=== PATIENT | female | born 1995 | race Caucasian/White ===

== ENCOUNTER 2025-04-10 16:43 | Outpatient (RCR) | payer BC, SELFPAY ==
[2025-04-10 18:25] VITALS: BP 123/73; PULSE 55
== END 2025-07-09 23:59 | disposition home or self-care (01) ==
LOC: ANHOBOP 16:43
PROVIDERS: PCP Family Medicine; Visit Provider Obstetrics & Gynecology Gynecology
DX: O36.8130 Decreased fetal movements, third trimester, not applicable or unspecified (principal); Z3A.38 38 weeks gestation of pregnancy
CPT/HCPCS: 59025

== ENCOUNTER 2025-04-15 16:41 | Inpatient (IN) | payer BC, SELFPAY ==
[2025-04-15] VITALS (19 sets, daily range): BP systolic 115–138; BP diastolic 49–86; PULSE 56–93; TEMP 36.8–36.9; BMI 37.0
--- OUTSIDE RECORDS SUMMARY | 2025-04-15 16:46 | XMS_ITS ---
Author Organization [facility] Source Produ ction (ClinicalSummary Clone) Address Unknown Care Team Providers Care Skill Training Program Coordinator Name Role Phone Unavailable Primary Care Physician Unavailab le Results * [UNITY] CARRIER SCREEN Performed by: [employer] Value Range Date Sickle Cell Disease/Beta-Thalassemia/Hemo globinopathies carrier screen NEGATIVE 10/17/2024 08:11 pm [facility] Alpha-Thalassemia carrier screen NEGATIVE 10/17/2024 08:11 pm [facility] Cystic Fibrosis carrier screen NEGATIVE 10/17/2024 08:11 pm [place] Spinal Muscular Atrophy carrier screen NEGATIVE 2 SMN1 copies, SNP not present 10/17/2024 08:11 pm [facility] For detailed report, see PDF See PDF 10/17/2024 08:11 pm [place] 10/17/2024 08:1 1 pm [facility] Social History Observation Value Start Date End Date
--- OUTSIDE RECORDS SUMMARY | 2025-04-15 16:46 | XMS_ITS | Encounter Summary ---
Author Organization [facility] Address [facility] [place] [address] Care Team Providers Care Shagger Name Role Phone Irina Tellez DO Primary Care Provider [phone] Encounter Details Date Type Department Care Team (Late st Contact Info) Description 06/09/2021 Synergost Message Enc [facility] Family Medicine - [place] [address], [address] [place] [phone] Irina Tellez DO [address] [address] Question Social History Tobacco Use Types Packs/Day Years Used Date Smoking Tobacco: Never Smokeless Tobacco: Never Alcohol Use Standard Drinks/Week Comments Not Currently 0 (1 standard drink = 0.6 oz pur e alcohol) PHQ-2 Answer Date Recorded PHQ-2 Score - If the patient scores above 3, please move on to questions 3-9 0 01/14/2021 Comments No Sex and Gender Information Value Date Recorded Sex Assigned at Female 10/10/2024 3:13 PM CDT Legal Sex Female 4:13 PM CDT Gender Identity Female 10/01/2021 8:29 AM WATER FILTRATION TECHNICIAN Sexual Orientation Straight 10/01/2021 8: 29 AM WATER FILTRATION TECHNICIAN documented as of this encounter Plan of Treatment Not on file documented as of this encounter Visit Diagnoses Not on filedocumented in this encounter Additional Health Concerns Assessment Noted Time PHQ-9 Depression Total Score: 0 06/09/20 21 2:27 PM WATER FILTRATION TECHNICIAN documented as of this encounter Care Teams Shagger Relationship Specialty Start Date End Date Irina Tellez DO [address] [place] [address] PCP - General FAMILY PRACTICE 09/15/19 documented as of this encounter
--- OUTSIDE RECORDS SUMMARY | 2025-04-15 16:46 | XMS_ITS | Encounter Summary ---
Author Organization [facility] Address [facility] [place] [address] Care Team Providers Care Welt Rander Name Role Phone Irina Tellez DO Primary Care Provider Encounter Details Date Type Department Care Team (Late st Contact Info) Description 06/22/2024 Tablefindert Message Enc [facility] Medical [facility] Family Medicine - [place] [address] [place] [phone] Irina Tellez DO [address] [place] [address] Work physical results Social History Tobacco Use Types Packs/Day Years Used Date Smoking Tobacco: Never Passive Smoke Exposure: Never Smokeless Tobacco: Never Comments:Never used Alcohol Use Standard Drinks/Week Comments Yes 2 (1 standard drink = 0.6 oz pur e alcohol) Only socially PHQ-2 Answer Date Recorded Patient Health Questionnaire-2 Score 0 10/11/2023 Comments No Sex and Gender Information Value Date Recorded Sex Assigned at Female 10/10/2024 3:13 PM CDT Legal Sex Female 4:13 PM CDT Gender Identity Female 10/01/2021 8:29 AM NEPHROLOGY NURSE Sexual Orientation Straight 10/01/2021 8: 29 AM NEPHROLOGY NURSE documented as of this encounter Plan of Treatment Not on file documented as of this encounter Visit Diagnoses Not on filedocumented in this encounter Additional Health Concerns Assessment Noted Time PHQ-9 Depression Total Score: 11 023 4:09 PM CDT documented as of this encounter Care Teams Welt Rander Relationship Specialty Start Date End Date Irina Tellez DO [address] [place] [address] PCP - General FAMILY PRACTICE 09/15/19 documented as of this encounter
--- OUTSIDE RECORDS SUMMARY | 2025-04-15 16:46 | XMS_ITS | Encounter Summary ---
Author Organization [facility] Address [facility] [place] [address] Care Team Providers Care Application Consultant Name Role Phone Irina Tellez DO Primary Care Provider Encounter Details Date Type Department Care Team (Late st Contact Info) Description 10/13/2021 MyChart Message Enc [facility] Medical [facility] Family Medicine - [place] [address], [address] [place] [phone] Irina Tellez DO [address] [place] [address] Vitamin d test Social History Tobacco Use Types Packs/Day Years Used Date Smoking Tobacco: Never Smokeless Tobacco: Never Alcohol Use Standard Drinks/Week Comments Not Currently 0 (1 standard drink = 0.6 oz pur e alcohol) PHQ-2 Answer Date Recorded PHQ-2 Score - If the patient scores above 3, please move on to questions 3-9 2 10/03/2021 Comments No Sex and Gender Information Value Date Recorded Sex Assigned at Female 10/10/2024 3:13 PM CDT Legal Sex Female 4:13 PM CDT Gender Identity Female 10/01/2021 8:29 AM EMS INSTRUCTOR Sexual Orientation Straight 10/01/2021 8: 29 AM EMS INSTRUCTOR COVID-19 Exposure Response Date Recorded In the last 10 days, have yo u been in contact with someone who was confirmed or suspected to have Coronavirus/COVID-19? No / Unsure 10/03/2021 7:46 AM EMS INSTRUCTOR documented as of this encounter Plan of Treatment Not on file documented as of this encounter Visit Diagnoses Not on filedocumented in this encounter Additional Health Concerns Assessment Noted Time PHQ-9 Depression Total Score: 8 10/04/19 22 7:51 AM EMS INSTRUCTOR documented as of this encounter Care Teams Application Consultant Relationship Specialty Start Date End Date Irina Tellez DO [address] [place] [address] PCP - General FAMILY PRACTICE 09/15/19 documented as of this encounter
--- OUTSIDE RECORDS SUMMARY | 2025-04-15 16:46 | XMS_ITS | Encounter Summary ---
Author Organization [facility] Care Team Providers Care Dispatcher Electric Power Name Role Phone No, Physician Primary Care Provider [phone] Irina Tellez MD Primary Care Provider [phone] Encounter Details Date Type Department Care Team (Latest Contact Info) Description 12/23/2015 Orders Only [facility] CLINCONV Provider, MD Demetrio [address] [place] [address] Social History Tobacco Use Types Packs/Day Years Used Date Smoking Tobacco: Never Comments Unknown Sex and Gender Information Value Date Recorded Sex Assigned at Not on file Legal Sex Female 10:01 PM SCHOOL CLERK Gender Identity Female 08/24/2024 12:56 PM SCHOOL CLERK Sexual Orientation Not on file documented as of this encounter Plan of Treatment Not on file documented as of this encounter Procedures Procedure Name Priority Date/Time Associated Diagnosis Comments PROCEDURE - RESULT 12/23/2015 12 :00 AM CDT documented in this encounter Results * PROCEDURE - RESULT (12/23/2015 12:00 AM CDT) Narrative 12/23/2015 12:00 AM CDT Ordered by an unspecified provider. Historical Provider Final Res ult documented in this encounter Visit Diagnoses Not on filedocumented in this encounter Care Teams Dispatcher Electric Power Relationship Specialty Start Date End Date No, Physician PCP - General 09/06/19 09/26/19 Irina Tellez MD PCP - General Family Medicine 09/27/19 documented as of this encounter
--- OUTSIDE RECORDS SUMMARY | 2025-04-15 16:46 | XMS_ITS | Encounter Summary ---
Author Organization [facility] Address [facility] [place] [address] Care Team Providers Care Gaggerman Name Role Phone Irina Tellez DO Primary Care Provider Encounter Details Date Type Department Care Team (Late st Contact Info) Description 06/11/2022 MyCEBDSoftt Message Enc [facility] Family Medicine - [place] [address], [address] [place] [phone] Irina Tellez DO [address] [place] [address] Abnormal lab results Social History Tobacco Use Types Packs/Day [...] CDT Gender Identity Female 10/01/2021 8:29 AM FUNCTIONAL TESTER Sexual Orientation Straight 10/01/2021 8: 29 AM FUNCTIONAL TESTER documented as of this encounter Progress Notes * Irina Tellez DO - 06/12/2022 1:46 PM CST She can try some Azo over the weekend and avoid caffeine and alcohol TIONAL TESTER * Irina Tellez DO - 06/11/2022 11:36 AM CST If she is not having symptoms that can happen due to vaginal shedding with the urine sample and does not mean she has a UTI We can place an order for a urine culture and then treat if positive TIONAL TESTER documented in this encounter Plan of Treatment Not on file documented as of this encounter Visit Diagnoses Not on filedocumented in this encounter Additional Health Concerns Assessment Noted Time PHQ-9 Depression Total Score: 8 10/04/19 22 7:51 AM FUNCTIONAL TESTER documented as of this encounter Care Teams Gaggerman Relationship Specialty Start Date End Date Irina Tellez DO [address] [place] [address] PCP - General FAMILY PRACTICE 09/15/19 documented as of this encounter
--- OUTSIDE RECORDS SUMMARY | 2025-04-15 16:46 | XMS_ITS | Encounter Summary ---
Author Organization [facility] Address [facility] [place] [address] Care Team Providers Care Xray Tech Name Role Phone Irina Tellez DO Primary Care Provider [phone] Encounter Details Date Type Department Care Team (Late st Contact Info) Description 04/16/2021 MoveEZt Message Enc [facility] Medical [facility] Family Medicine - [place] [address], [address] [place] [phone] Irina Tellez DO [address] [place] [address] RE: Medication Questions Social History Tobacco Use Types Packs/Day Years [...] CDT Gender Identity Female 10/01/2021 8:29 AM DIGITAL MEDIA INTERN Sexual Orientation Straight 10/01/2021 8: 29 AM DIGITAL MEDIA INTERN COVID-19 Exposure Response Date Recorded In the last month, have you been in contact with someone who was confirmed or suspected to have Coronavirus / COVID-19? No / Unsure 04/02/2021 8:26 AM CDT documented as of this encounter Plan of Treatment Not on file documented as of this encounter Visit Diagnoses Not on filedocumented in this encounter Additional Health Concerns Assessment Noted Time PHQ-9 Depression Total Score: 0 01/15/20 21 8:52 AM CDT documented as of this encounter Care Teams Xray Tech Relationship Specialty Start Date End Date Irina Tellez DO [address] [place] [address] PCP - General FAMILY PRACTICE 09/15/19 documented as of this encounter
--- OUTSIDE RECORDS SUMMARY | 2025-04-15 16:46 | XMS_ITS | Encounter Summary ---
Author Organization [facility] Address [facility] [place] [address] Care Team Providers Care Forge Helper Name Role Phone Irina Tellez DO Primary Care Provider Encounter Details Date Type Department Care Team (Late st Contact Info) Description 06/16/2021 NewsWhipt Message Enc [facility] Medical Group Family Medicine - [place] [address], [address] [place] [phone] Irina Tellez DO [address] [place] [address] Work physical blood and urine testing Social History Tobacco Use Types Packs/Day Years [...] CDT Gender Identity Female 10/01/2021 8:29 AM TERMITE TECHNICIAN Sexual Orientation Straight 10/01/2021 8: 29 AM TERMITE TECHNICIAN COVID-19 Exposure Response Date Recorded In the last month, have you been in contact with someone who was confirmed or suspected to have Coronavirus / COVID-19? No / Unsure 06/16/2021 7:10 PM TERMITE TECHNICIAN documented as of this encounter Progress Notes * Irina Tellez DO - 06/16/2021 3:03 PM CST If she is not having symptoms I would have her stop by for a Urine Culture before we treat ITE TECHNICIAN documented in this encounter Plan of Treatment Not on file documented as of this encounter Visit Diagnoses Not on filedocumented in this encounter Additional Health Concerns Assessment Noted Time PHQ-9 Depression Total Score: 0 06/09/20 21 2:27 PM TERMITE TECHNICIAN documented as of this encounter Care Teams Forge Helper Relationship Specialty Start Date End Date Irina Tellez DO [address] [place] [address] PCP - General FAMILY PRACTICE 09/15/19 documented as of this encounter
--- OUTSIDE RECORDS SUMMARY | 2025-04-15 16:46 | XMS_ITS | Clinical Summary ---
Author Organization [facility] Address [address] [place] [address] Care Team Providers Care Social Insurance Specialist Name Role Phone GeoffIrina Charla GUADALUPE Primary Care Provider [phone] Allergies No known active allergies Medications vitamin D2, ergocalciferol, (DRISDOL) 1.25 mg capsule Take 1 capsule (50,000 Units total) by mouth once a week. 07/04/2022 Active MV & Min w/FA-DHA ( ADULT GUMMY/DHA/FA OR) 4 gummies daily Active Active Problems Problem Noted Date Diagnosed Date and not yet delivered in first trimeste r ([facility]) 08/18/2024 Overview (10/10/2024): Found out I was and am currently 12 weeks as of 10-06-24 due date is 04-20-25 Complete tear of anterior cruciate ligament of k nee 12/26/2010 Estimated Date of Delivery Comme nts Yes 04/20/2025 Immunizations Immunization Administration Dates Next Due Dtp (Generic) 12/22/2001, 8,1996,03/1997,1996 Fluzone 6 Months+ Quad (0.5 mL Prefilled Syringe) 06/16/2023,05/30/2021,05/24/2020 HPV GARDASIL 9-VALENT 07/17/2021,04/02/2021,12/31 Hepatitis B (Generic: Adult) 1996,07/05/19 96,1996 Hib (Generic) 08/25/1997, 7,1996,11/1995 Influenza Adult (Generic) 05/24/2022 MENINGOCOCCAL A C Y&W-135 oligosaccharide (MENVEO) 01/31/2015 MMR (Generic) 08/25/2007,12/22/2001 PFIZER COVID-19 (ORIGINAL FO RMULATION, PURPLE CAP) mRNA, LNP-S, PF, 30 MCG/0.3 ML DOSE 06/18/2021,10/02/2020,09/11/2020 Pneumococcal (Prevnar 7) 05/08/2000 Polio Ipv (Generic) 12/22/2001 Polio Opv (Generic) 11/10/1997,1996,1995 Tdap (Generic) 05/23/2020,12/30/2010 Varicella (Generic) 08/25/1997 Family History Medical History Relation Comments Hypertension Father Diabetes Maternal Grandmother Type 2 Cancer Mother Skin cancer, has new development that may be breast cancer Hypertension Mother Stroke Paternal Aunt 1 Stroke Paternal Aunt 2 Had multiple str okes at 60 Stroke Paternal Grandfather Diabetes Paternal Grandmother Type 2 Relation Status Comments Father Maternal Grandmother Mother Paternal Aunt 1 Paternal Aunt 2 Paternal Grandfather Paternal Grandmother Social History Tobacco Use Types Packs/Day Years Used Date Smoking Tobacco: Never Passive Smoke Exposure: Never Smokeless Tobacco: Never Tobacco Cessation:Counseling Given: No Comments:Never used Alcohol Use Standard Drinks/Week Comments Not Currently 2 (1 standard drink = 0.6 oz pur e alcohol) Only socially PHQ-2 Answer Date Recorded Patient Health Questionnaire-2 Score 0 10/10/2024 Estimated Date of Delivery Comme nts Yes 04/20/2025 Sex and Gender Information Value Date Recorded Sex Assigned at Female 10/10/2024 3:13 PM CDT Legal Sex Female 4:13 PM CDT Gender Identity Female 10/01/2021 8:29 AM ACCOUNTING OFFICE MANAGER Sexual Orientation Straight 10/01/2021 8: 29 AM ACCOUNTING OFFICE MANAGER Last Filed Vital Signs Vital Sign Reading Time Taken Comments Blood Pressure 122/72 10/10/2024 3:11 PM CDT Pulse 73 10/10/2024 3:11 PM CDT Temperature 36.7 C (98 F) 10/10/2024 3:11 PM CDT Respiratory Rate 18 10/10/2024 3:11 PM CDT Oxygen Saturation 97% 10/10/2024 3:11 PM CDT Inhaled Oxygen Concentration - - Weight 94.1 kg (207 lb 6.4 oz) 10/10/2024 3:11 P M CDT Height 165.1 cm (5' 5) 10/10/2024 3:11 PM CDT Body Mass Index 34.51 10/10/2024 3:11 PM CDT Plan of Treatment Health Maintenance Due Date Last Done Comments Cervical Cancer Screening Pap Smear (Age 21 to 29) Every 3 Years 09/19/2024 09/19/2021 Cervical Cancer Screening 09/19/2024 COVID-19 Vaccine ( season) 2025 06/18/2021, 10/02/2020, 09/11/2020 Annual Physical 10/10/2025 10/10/2024, 09/30, 10/06/2022, Additional history exists DTaP, Tdap and Td Vaccines (8 - Td or Tdap) 05/23/2030 05/23/2020, 12/30/2010, 12/22/2001, Additional history exists Hepatitis B Vaccines Completed 1996, 1996, 1996 Pneumococcal Vaccine: Pediatrics (0 to 5 Years) and At-Risk Patients (6 to 49 Years) Aged Out 05/08/2000 No longer eligible based on patient's age to complete this topic Meningococcal Vaccine Completed 01/31/2015 HPV Vaccines Completed 07/17/2021, 09/0 08/2020, 01/14/2021 Hepatitis C Completed 10/03/2021 PHQ-2 (Physician [place]) Completed 10/10/2024 Meningococcal B Vaccine Aged Out No l onger eligible based on patient's age to complete this topic RSV Immunization or 60+ Years (No Doses Required) Completed RSV Immunizations Under 20 Months Aged Out No longer eligible based on patient's age to complete this topic Procedures Procedure Name Priority Date/Time Associated Diagnosis Comments HEPATITIS C ANTIBODY 10/03/2021 9:56 AM ACCOUNTING OFFICE MANAGER OUTSIDE CYTOPATH CERV/VAG INTERPRET (PAP) (SCAN ORDER) 09/19/2021 from Last 3 Months or Most Recently Relevant to Health Maintenance Results * HEPATITIS C ANTIBODY (10/03/2021 9:56 AM ACCOUNTING OFFICE MANAGER) HEPATITIS C AB <0.1 0.0 - 0.9 s/co ratio [facility] 1 Comment: Negative: < 0.8 Indeterminate: 0.8 - 0.9 Positive: > 0.9 The CDC recommends that a positive HCV antibody result be followed up with a HCV Nucleic Acid Amplification test (705158). 10/03/2021 9:56 AM ACCOUNTING OFFICE MANAGER 10/03/2021 Narrative [facility] - 10/04/2021 8:11 AM ACCOUNTING OFFICE MANAGER Performed at: 01 - [facility] [address] [id number] Restaurant Attendant: Jaguar Tubbs PhD, Phone: [phone] us Irina Tellez DO LABORATORY Final Result [facility] [address] [place] [address] [facility] 1 * OUTSIDE CYTOPATH CERV/VAG INTERPRET (PAP) (09/19/2021) 09/19/2021 Narrative 09/19/2021 Ordered by an unspecified provider. us Documents Scanned SCANNING Final Result from Last 3 Months or Most Recently Relevant to Health Maintenance Insurance [facility] Care Teams Social Insurance Specialist Relationship Specialty Start Date End Date Irina Tellez DO [address] [place] [address] PCP - General FAMILY PRACTICE 09/15/19
--- OUTSIDE RECORDS SUMMARY | 2025-04-15 16:46 | XMS_ITS | Encounter Summary ---
Author Organization [facility] Address [facility] [place] [address] Care Team Providers Care Orthopedic Mechanic Name Role Phone Irina Tellez DO Primary Care Provider Encounter Details Date Type Department Care Team (Late st Contact Info) Description 06/16/2023 Dealupat Message Enc [facility] Medical Group Family Medicine - [place] [address] [place] [phone] Irina Tellez DO [address] '[place] [address] Weird bump on arm Social History Tobacco Use Types Packs/Day Years Used Date Smoking Tobacco: Never Passive Smoke Exposure: Never Smokeless Tobacco: Never Comments:Never used Alcohol Use Standard Drinks/Week Comments Yes 2 (1 standard drink = 0.6 oz pur e alcohol) Only socially PHQ-2 Answer Date Recorded Patient Health Questionnaire-2 Score 2 02/22/2023 Comments No Sex and Gender Information Value Date Recorded Sex Assigned at Female 10/10/2024 3:13 PM CDT Legal Sex Female 4:13 PM CDT Gender Identity Female 10/01/2021 8:29 AM SENIOR C WEB DEVELOPER Sexual Orientation Straight 10/01/2021 8: 29 AM SENIOR C WEB DEVELOPER documented as of this encounter Plan of Treatment Not on file documented as of this encounter Visit Diagnoses Not on filedocumented in this encounter Additional Health Concerns Assessment Noted Time PHQ-9 Depression Total Score: 11 023 4:09 PM CDT documented as of this encounter Care Teams Orthopedic Mechanic Relationship Specialty Start Date End Date Irina Tellez DO [address] [place] [address] PCP - General FAMILY PRACTICE 09/15/19 documented as of this encounter
--- OUTSIDE RECORDS SUMMARY | 2025-04-15 16:46 | XMS_ITS | Encounter Summary ---
Author Organization [facility] Address [facility] [place] [address] Care Team Providers Care Health Club Manager Name Role Phone Irina Tellez DO Primary Care Provider [phone] Encounter Details Date Type Department Care Team (Late st Contact Info) Description 02/12/2021 MyCDerbyJackpott Message Enc [facility] Medical Group Family Medicine - [place] [address] [place] [phone] Irina Tellez DO [address] [place] [address] RE: Question Social History Tobacco Use Types Packs/Day [...] CDT Gender Identity Female 10/01/2021 8:29 AM PHLEBOTOMY DIRECTOR Sexual Orientation Straight 10/01/2021 8: 29 AM PHLEBOTOMY DIRECTOR COVID-19 Exposure Response Date Recorded In the last month, have you been in contact with someone who was confirmed or suspected to have Coronavirus / COVID-19? No / Unsure 01/13/2021 10:34 AM CDT documented as of this encounter Plan of Treatment Not on file documented as of this encounter Visit Diagnoses Not on filedocumented in this encounter Additional Health Concerns Assessment Noted Time PHQ-9 Depression Total Score: 0 01/15/20 21 8:52 AM CDT documented as of this encounter Care Teams Health Club Manager Relationship Specialty Start Date End Date Irina Tellez DO [address] [place] [address] PCP - General FAMILY PRACTICE 09/15/19 documented as of this encounter
--- OUTSIDE RECORDS SUMMARY | 2025-04-15 16:46 | XMS_ITS | Encounter Summary ---
Author Organization [facility] Address [facility] [place] [address] Care Team Providers Care Pre Sales Technical Consultant Name Role Phone Irina Tellez DO Primary Care Provider [phone] Encounter Details Date Type Department Care Team (Late st Contact Info) Description 11/05/2020 Antenovat Message Enc [facility] Medical Group Family Medicine - [place] [address] [place] [phone] Irina Tellez DO [address] [place] [address] RE: Other Social History Tobacco Use Types Packs/Day Years Used Date Smoking Tobacco: Never Smokeless Tobacco: Never Alcohol Use Standard Drinks/Week Comments Not Currently 0 (1 standard drink = 0.6 oz pur e alcohol) PHQ-2 Answer Date Recorded PHQ-2 Score - If the patient scores above 3, please move on to questions 3-9 0 09/16/2020 Comments No Sex and Gender Information Value Date Recorded Sex Assigned at Female 10/10/2024 3:13 PM CDT Legal Sex Female 4:13 PM CDT Gender Identity Female 10/01/2021 8:29 AM SPACE SYSTEMS OPERATIONS SUPERINTENDENT Sexual Orientation Straight 10/01/2021 8: 29 AM SPACE SYSTEMS OPERATIONS SUPERINTENDENT COVID-19 Exposure Response Date Recorded In the last month, have you been in contact with someone who was confirmed or suspected to have Coronavirus / COVID-19? No / Unsure 10/14/2020 12:08 AM CDT documented as of this encounter Plan of Treatment Not on file documented as of this encounter Visit Diagnoses Not on filedocumented in this encounter Care Teams Pre Sales Technical Consultant Relationship Specialty Start Date End Date Irina Tellez DO [address] [place] [address] PCP - General FAMILY PRACTICE 09/15/19 documented as of this encounter
--- OUTSIDE RECORDS SUMMARY | 2025-04-15 16:46 | XMS_ITS | Encounter Summary ---
Author Organization [facility] Address [facility] [place] [address] Care Team Providers Care Insulator Cutter And Former Name Role Phone Irina Tellez DO Primary Care Provider [phone] Encounter Details Date Type Department Care Team (Late st Contact Info) Description 11/04/2022 MyChart Message Enc [facility] Family Medicine - [place] [address] [place] [phone] Irina Tellez DO [address] '[place] [address] Chest pains Social History Tobacco Use Types Packs/Day Years Used Date Smoking Tobacco: Never Smokeless Tobacco: Never Comments:Never used Alcohol Use Standard Drinks/Week Comments Yes 2 (1 standard drink = 0.6 oz pur e alcohol) Only socially PHQ-2 Answer Date Recorded Patient Health Questionnaire-2 Score 3 10/06/2022 Comments No Sex and Gender Information Value Date Recorded Sex Assigned at Female 10/10/2024 3:13 PM CDT Legal Sex Female 4:13 PM CDT Gender Identity Female 10/01/2021 8:29 AM SCHOOL BUS MONITOR Sexual Orientation Straight 10/01/2021 8: 29 AM SCHOOL BUS MONITOR COVID-19 Exposure Response Date Recorded In the last 10 days, have yo u been in contact with someone who was confirmed or suspected to have Coronavirus/COVID-19? No / Unsure 11/04/2022 12:35 PM CDT documented as of this encounter Plan of Treatment Not on file documented as of this encounter Visit Diagnoses Not on filedocumented in this encounter Additional Health Concerns Assessment Noted Time PHQ-9 Depression Total Score: 12 023 4:05 PM SCHOOL BUS MONITOR documented as of this encounter Care Teams Insulator Cutter And Former Relationship Specialty Start Date End Date Irina Tellez DO [address] [place] [address] PCP - General FAMILY PRACTICE 09/15/19 documented as of this encounter
--- OUTSIDE RECORDS SUMMARY | 2025-04-15 16:46 | XMS_ITS ---
Author Organization [facility] Source Produ ction (ClinicalSummary Clone) Address Unknown Care Team Providers Care Engineering Technology Instructor Name Role Phone Unavailable Primary Care Physician Unavailab le Results * [UNITY] ANEUPLOIDY NIPT Performed by: Bondora (by isePankur) Component Value Range Date Fraction 7.3% 10/10/2024 04 :45 pm UTC Sex Chromosome Aneuploidy NOT DETECTED 04:45 pm UTC Monosomy X LOW RISK <1 in 10,000 2024 04:45 pm UTC Trisomy 13 LOW RISK <1 in 10,000 2024 04:45 pm UTC Trisomy 18 LOW RISK <1 in 10,000 2024 04:45 pm UTC Trisomy 21 LOW RISK <1 in 10,000 2024 04:45 pm UTC Sex MALE 10/10/2024 04:4 5 pm UTC Gestation LEIVA 10/11/19 04:45 pm UTC For detailed report, see PDF See PDF 10/10/2024 04:45 pm UTC 10/10/2024 04:4 5 pm UTC Social History Observation Value Start Date End Date
--- OUTSIDE RECORDS SUMMARY | 2025-04-15 16:46 | XMS_ITS | Encounter Summary ---
Author Organization [facility] Address [facility] [place] [address] Care Team Providers Care Marine Fire Fighter Name Role Phone Irina Tellez DO Primary Care Provider [phone] Encounter Details Date Type Department Care Team (Late st Contact Info) Description 09/04/2020 MyChart Message Enc [facility] Medical [facility] Family Medicine - [place] [address], [address] [place] [phone] Irina Tellez DO [address] [place] [address] RE: Question Social History Tobacco Use Types Packs/Day Years Used Date Smoking Tobacco: Never Smokeless Tobacco: Never Comments No Sex and Gender Information Value Date Recorded Sex Assigned at Female 10/10/2024 3:13 PM CDT Legal Sex Female 4:13 PM CDT Gender Identity Female 10/01/2021 8:29 AM INTERVENTIONAL CARDIOLOGIST Sexual Orientation Straight 10/01/2021 8: 29 AM INTERVENTIONAL CARDIOLOGIST documented as of this encounter Plan of Treatment Not on file documented as of this encounter Visit Diagnoses Not on filedocumented in this encounter Care Teams Marine Fire Fighter Relationship Specialty Start Date End Date Irina Tellez DO [address] [place], [place] [id number] PCP - General FAMILY PRACTICE 09/15/19 documented as of this encounter
--- OUTSIDE RECORDS SUMMARY | 2025-04-15 16:46 | XMS_ITS | Clinical Summary ---
Author Organization [facility] Address [address] [place] [address] Care Team Providers Care Director River Restoration Name Role Phone Irina Tellez MD Primary Care Provider [phone] Allergies No known active allergies Medications 08/21, 28, 1 mg-20 mcg (21)/75 mg (7) per tablet 08/01/2019 Active Active Problems Problem Noted Date Diagnosed Date Synovitis of knee 02/01/2012 Sprain of medial collateral ligament of knee 09/2010 Knee pain 01/05/2011 Complete tear of anterior cruciate ligament of k nee 12/26/2010 Encounters Date Type Department Care Team Description 03/14/2025 5:45 PM CDT - 03/14/2025 11:59 PM CDT Hospital Encounter [facility] [address] [place] [address] Maternal care for excessive growth in third trimester, not applicable or unspecified fetus Discharge Disposition: Discharge to home or self care from Last 3 Months Surgical History Surgery Date Site/Laterality Comments MENISCUS SURGERY 08/10/2014 Right SCAPHOID FRACTURE SURGERY 01/01/2016 Right ANTERIOR CRUCIATE LIGAMENT REPAIR 02/04/2011 Right Family History Medical History Relation Name Comments Clotting disorder Father Relation Name Status Comments Father Social History Tobacco Use Types Packs/Day Years Used Date Smoking Tobacco: Never Smokeless Tobacco: Never Alcohol Use Standard Drinks/Week Comments Yes 0 (1 standard drink = 0.6 oz pur e alcohol) Comments Unknown Sex and Gender Information Value Date Recorded Sex Assigned at Not on file Legal Sex Female 10:01 PM EQUIPMENT TESTER Gender Identity Female 08/24/2024 12:56 PM EQUIPMENT TESTER Sexual Orientation Not on file 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 Not on file Not on file Obstetrics History Last Filed Vital Signs Vital Sign Reading Time Taken Comments Blood Pressure 134/83 12/23/2015 12:22 PM CDT Pulse 58 12/23/2015 12:22 PM CDT Temperature 36.6 C (97.8 F) 12/23/2015 12:22 PM CDT Respiratory Rate - - Oxygen Saturation 99% 12/23/2015 12:22 PM CDT Inhaled Oxygen Concentration - - Weight 81.6 kg (180 lb) 09/07/2019 7:46 AM EQUIPMENT TESTER Height 165.1 cm (5' 5) 09/07/2019 7:46 AM EQUIPMENT TESTER Body Mass Index 29.95 09/07/2019 7:46 AM EQUIPMENT TESTER Plan of Treatment Health Maintenance Due Date Last Done Comments Cervical Cancer Screening 1996 Depression Screening 1996 Hepatitis C Screening 1996 Regular Well Visit/Exam 18-64 2014 HPV Vaccines (1 - 3-dose SCD M series) 2023 Covid-19 Vaccine (4 - 2024-2 6 season) 2025 06/18/2021, 10/02/2020, 09/11/2020 Influenza Vaccine (#1) 2025 3, 05/24/2022, 05/30/2021, Additional history exists DTaP/Tdap/Td Vaccine (4 - Td or Tdap) 05/23/2030 05/23/2020, 12/30/2010, 12/22/2001, Additional history exists Hepatitis B Screening Completed 1996 , 1996, 1996 Pneumococcal vaccine <65 Completed 05/08/2000 Varicella Vaccines Completed 08/25/2007, 0 12/22/2001, 08/25/1997 Procedures Procedure Name Priority Date/Time Associated Diagnosis Comments US OB 14 WEEKS OR OVER Schedule Routine, Read Routine (OP Routine) 03/14/2025 6:35 PM CDT Maternal care for excessive growth in third trimester, not applicable or unspecified fetus from Last 3 Months Results * US OB 14 Weeks Or Over (03/14/2025 6:35 PM CDT) Anatomical Region Laterality Modality Abdomen N/A Ultrasound 04/01/2025 3:09 PM CDT Narrative 04/01/2025 3:13 PM CDT EXAM DESCRIPTION: US OB 14 WEEKS OR OVER REASON FOR STUDY: Maternal care for excessive growth, third trimester TECHNIQUE: Complete transabdominal obstetric ultrasound was performed. COMPARISON: 12/22/2024. FINDINGS: The clinical age is 34 weeks 5 days with an DEWAYNE 04/20/2025. Single intrauterine with cephalic presentation. Placenta is anterior with no evidence of placenta previa. heart rate 125 beats per minute. Amniotic fluid index 9.8 cm. BPD is 9.34 cm corresponding to 38 weeks 0 days. HC is 33.20 cm corresponding to 37 weeks 6 days. AC is 29.77 cm corresponding to 33 weeks 5 days. FL is 6.60 cm corresponding to 34 weeks 0 days. Growth ratios comparing either femur length or abdominal circumference to either the head circumference or biparietal diameter is abnormal outside the reference range. The estimated weight 2477 g +/-372 g (5 pound 7 ounces +/-13 ounces) which is at the 43rd percentile. The estimated age is 35 weeks 6 days with an DEWAYNE 04/12/2025. IMPRESSION: 1. Single intrauterine estimated at 35 weeks 6 days with an DEWAYNE 04/12/2025. 2. Biparietal diameter and head circumference measuring greater than abdominal circumference and femur length. Findings raise suspicion of intrauterine growth restriction. 3. weight at the 43rd percentile. 4. Amniotic fluid index 9.8 cm. THIS IS AN ELECTRONICALLY VERIFIED FINAL REPORT 04/01/2025 3:13 PM - Electronically signed by Abdelrahman Hanson M.D. T: Report ID: [id number] Reading Location: [id number] Procedure Note Abdelrahman Hanson MD - 04/01/2025 EXAM DESCRIPTION: US OB 14 WEEKS OR OVER REASON FOR STUDY: Maternal care for excessive growth, thirdtrimester TECHNIQUE: Complete transabdominal obstetric ultrasound was performed. COMPARISON: 12/22/2024. FINDINGS: The clinical age is 34 weeks 5 days with an DEWAYNE 04/20/2025. Single intrauterine with cephalic presentation. Placenta is anterior with no evidence of placenta previa. heart rate 125 beats per minute. Amniotic fluid index 9.8 cm. BPD is 9.34 cm corresponding to 38 weeks 0 days. HC is 33.20 cm corresponding to 37 weeks 6 days. AC is 29.77 cm corresponding to 33 weeks 5 days. FL is 6.60 cm corresponding to 34 weeks 0 days. Growth ratios comparing either femur length or abdominal circumference to either the head circumference or biparietal diameter is abnormal outsidethe reference range. The estimated weight 2477 g +/-372 g (5 pound 7 ounces +/-13 ounces) which is at the 43rd percentile. The estimated age is 35 weeks 6 days with an DEWAYNE 04/12/2025. IMPRESSION: 1. Single intrauterine estimated at 35 weeks 6 days with anEDD 04/12/2025. 2. Biparietal diameter and head circumference measuring greater than abdominal circumference and femur length. Findings raise suspicion of intrauterine growth restriction. 3. weight at the 43rd percentile. 4. Amniotic fluid index 9.8 cm. THIS IS AN ELECTRONICALLY VERIFIED FINAL REPORT 04/01/2025 3:13 PM - Electronically signed by Abdelrahman Hanson M.D. T: Report ID: [id number] Reading Location: [id number] us Carley Brody MD IMG OB US PROCEDURES Fin al Result from Last 3 Months Insurance ANTHEM ACCESS IONE ACCESS OOS Care Teams Director River Restoration Relationship Specialty Start Date End Date Irina Tellez MD PCP - General Family Medicine 09/27/19
--- OUTSIDE RECORDS SUMMARY | 2025-04-15 16:46 | XMS_ITS | Encounter Summary ---
Author Organization [facility] Address [facility] [place] [address] Care Team Providers Care Vehicle Dismantler Name Role Phone Irina Tellez DO Primary Care Provider [phone] Encounter Details Date Type Department Care Team (Late st Contact Info) Description 04/14/2021 Fantomt Message Enc [facility] Family Medicine - [place] [address], [address] [place] [phone] Irina Tellez DO [address] [place] [address] RE: Question Social History Tobacco Use Types [...] CDT Gender Identity Female 10/01/2021 8:29 AM CONSERVATOR ARTIFACTS Sexual Orientation Straight 10/01/2021 8: 29 AM CONSERVATOR ARTIFACTS COVID-19 Exposure Response Date Recorded In the [...] documented as of this encounter Care Teams Vehicle Dismantler Relationship Specialty Start Date End Date Irina Tellez DO [address] [place] [address] PCP - General FAMILY PRACTICE 09/15/19 documented as of this encounter
--- OUTSIDE RECORDS SUMMARY | 2025-04-15 16:46 | XMS_ITS | Encounter Summary ---
Author Organization [facility] Address [facility] [place] [address] Care Team Providers Care Mutual Fund Sales Agent Name Role Phone Irina Tellez DO Primary Care Provider Encounter Details Date Type Department Care Team (Late st Contact Info) Description 10/28/[address] [facility] Family Medicine - [place] [address], [address] [place] [phone] Irina Tellez DO [address] [place] [address] New meds Social History Tobacco Use Types Packs/Day Years [...] CDT Gender Identity Female 10/01/2021 8:29 AM SUPERVISOR DRAPERY HANGING Sexual Orientation Straight 10/01/2021 8: 29 AM SUPERVISOR DRAPERY HANGING COVID-19 Exposure Response Date Recorded In the last 10 days, have yo u been in contact with someone who was confirmed or suspected to have Coronavirus/COVID-19? No / Unsure 10/06/2022 2:57 PM SUPERVISOR DRAPERY HANGING documented as of this encounter Plan of Treatment Not on file documented as of this encounter Visit Diagnoses Not on filedocumented in this encounter Additional Health Concerns Assessment Noted Time PHQ-9 Depression Total Score: 12 023 4:05 PM SUPERVISOR DRAPERY HANGING documented as of this encounter Care Teams Mutual Fund Sales Agent Relationship Specialty Start Date End Date Irina Tellez DO [address] [place] [address] PCP - General FAMILY PRACTICE 09/15/19 documented as of this encounter
--- OUTSIDE RECORDS SUMMARY | 2025-04-15 16:46 | XMS_ITS | Encounter Summary ---
Author Organization [facility] Address [facility] [place] [address] Care Team Providers Care Certified Registered Locksmith Name Role Phone Irina Tellez DO Primary Care Provider Encounter Details Date Type Department Care Team (Late st Contact Info) Description 11/03/2021 MyCSchematic Labst Message Enc [facility] Family Medicine - [place] [address], [address] [place] [phone] Irina Tellez DO [address] [place] [address] Cold and medicine I am prescribed Social History Tobacco Use Types Packs/Day Years [...] CDT Gender Identity Female 10/01/2021 8:29 AM RUSSIAN RUBBER Sexual Orientation Straight 10/01/2021 8: 29 AM RUSSIAN RUBBER documented as of this encounter Plan of Treatment Not on file documented as of this encounter Visit Diagnoses Not on filedocumented in this encounter Additional Health Concerns Assessment Noted Time PHQ-9 Depression Total Score: 8 10/04/19 22 7:51 AM RUSSIAN RUBBER documented as of this encounter Care Teams Certified Registered Locksmith Relationship Specialty Start Date End Date Irina Tellez DO [address] [place] [address] PCP - General FAMILY PRACTICE 09/15/19 documented as of this encounter
--- NOTE | 2025-04-15 17:20 | LDADM ---
This patient, Renetta Herbert, was admitted to Labor/Delivery/Recovery 104 on 04/15/25 at 16:41. Plans for labor, pain management and were discussed with patient. Patient/family oriented to hospital policies and general routines including ID bracelet, bed and alarms, visiting hours, pain management, procedures, bathroom and other care routines, personal items, smoking policy, room service/diet and guest tray routines, security routines, and visiting hours. Patient/Family are encouraged to report perceived risks to care and to ask questions if they do not understand what they are told or what they should do. See OBIX for further documentation.
[2025-04-15 17:21] LABS: Hematocrit 40.5 % (37.0-47.0); Hemoglobin 12.8 g/dL (12.0-15.0); Immature Granulocyte Percent A 0.4 % (0-0.5); Lymphocytes Absolute Auto 1.65 K/mm3 (0.9-3.2); Mean Corpuscular HGB Conc 31.6 g/dl (32-36); Mean Corpuscular Hemoglobin 25.6 pg (26-34); Mean Corpuscular Volume 81.0 fl (80-100); Nucleated Red Blood Cells Absolute Auto 0.000 K/mm3 (0.0-0.012); Nucleated Red Blood Cells Perc 0.0 % (0.0-0.2); Platelet Count Result 243 k/mm3 (150-375); Red Blood Count 5.00 M/mm3 (4.2-5.4); White Blood Count 9.7 K/mm3 (4.5-10.0)
[2025-04-15 17:32] LABS: Alanine Aminotransferase 19 U/L (6-35); Albumin Level 3.8 g/dL (3.5-5.1); Alkaline Phosphatase 196 U/L (38-126); Anion Gap 8 mmol/L (4-12); Aspartate Amino Transferase 31 U/L (14-36); Bilirubin,Total 0.3 mg/dL (0.2-1.3); Blood Urea Nitrogen 17 mg/dL (7-17); Calcium 9.3 mg/dL (8.4-10.2); Carbon Dioxide 19 mmol/L (22-30); Chloride 107 mmol/L (98-107); Estimated Glomerular Filt Rate > 60; Glucose 98 mg/dL (65-110); Potassium 4.1 mmol/L (3.4-5.0); Sodium 134 mmol/L (137-145); Total Protein 7.2 g/dL (6.3-8.2)
[2025-04-15 18:02] LABS: Syphilis IgG/IgM Antibody Non-Reactive (Nonreactive)
[2025-04-15] MEDS: DINOPROSTONE 10 MG VAG INSERT VAGINAL (18:18)
[2025-04-16] VITALS (120 sets, daily range): BP systolic 85–143; BP diastolic 48–108; PULSE 47–172; TEMP 36.5–37.7; O2SAT 95–100
[2025-04-16] MEDS: LACTATED RINGERS 1,000 ML 125 ML IV CONT (07:08)
[2025-04-16] MEDS: OXYTOCIN 30 UNITS/NS 500 ML 30 UNITS/500 ML BAG IV CONT (08:01)
--- NOTE | 2025-04-16 08:12 | WPDOBADMIT ---
Obstetrics - Admit Note Admission Note: record reviewed. No pertinent additions to the history and/or any subsequent changes in the physical findings that are not consistent with the expected course of the were found. Additions to the history and/or subsequent changes in the physical findings follow. Here for MIL at 39 3/7 wks with GDM. Cervadil overnight and now /-2 anterior. AROM with clear fluid. FHTs cat. I. Pitocin as needed.
--- NOTE | 2025-04-16 16:41 | P.PCNOB_ITS ---
OB - Vaginal Delivery Note Procedure Delivery date: 04/16/25 Events: Gestational Diabetes (GDMA1) Induction method: AROM, Per Pitocin Protocol and Per Cervidil Protocol Delivery monitor: External FHT and External Uterine Route of delivery: Laceration Description: Perineal - 2nd Degree Delivery repair: vicryl (3-0) Specimen: No Quantitative Blood Loss (ml): 200 Anesthesia type: Epidural Disposition: Floor Complications: No immediate complications [place] Baby Date of : 04/16/25 Gestational Age by Date: 39 gender: Male presentation: vertex position: Right Occiput Anterior Placenta delivery description: Spontaneous Cord Vessel Description: 3 Vessels, Delayed Cord Clamping and Other (marginal insertion) score one minute: 8 score five minutes: 9
--- NOTE | 2025-04-16 16:43 | PM.OBDSVD ---
DS: Admitting Diagnosis Discharge Date 04/18/25 Admitting Diagnosis IUP 39 2/7 wks [facility] for GDMA1 DS: Discharge Diagnosis Discharge Diagnosis (1) (normal spontaneous vaginal delivery): Code(s): O80 - Encounter for full-term uncomplicated delivery Status: Acute OB - DS: Summary OB Procedures : Ultrasound OB Procedures Intrapartum: Spontaneous Vag Delivery OB Procedures: : None Peripartum Data Infant Delivery Method: Natural Vaginal Laceration Description: Perineal - 2nd Degree complications: none Status at Discharge Functional status at discharge: independent ambulation Overall status at discharge: patient is progressing back to baseline Time Spent with Patient Time attestation: Total time spent providing and/or coordinating discharge services: DS: Data Data Completed and Pending Labs on day of discharge: Labs from last 24 hours 04/16/25 04/16/25 04/16/25 14:55 13:41 10:27 WBC RBC Hgb Hct MCV MCH MCHC RDW Plt Count MPV Immature Gran % (Auto) Neut % (Auto) Lymph % (Auto) [place] % (Auto) Eos % (Auto) Baso % (Auto) Lymph # (Auto) [place] # (Auto) Eos # (Auto) Baso # (Auto) Abs Immat Gran (auto) Absolute Neuts (auto) Absolute Nucleated RBC Nucleated RBC % Sodium Potassium Chloride Carbon Dioxide Anion Gap BUN Creatinine Estim Creat Clear Calc Estimated GFR Glucose POC Capillary Glucose 88 93 80 Calcium Total Bilirubin AST ALT Alkaline Phosphatase Total Protein Albumin Syphilis IgG/IgM Ab Blood Type Antibody Screen 04/16/25 04/16/25 04/15/25 06:25 02:40 23:46 WBC RBC Hgb Hct MCV MCH MCHC RDW Plt Count MPV Immature Gran % (Auto) Neut % (Auto) Lymph % (Auto) [place] % (Auto) Eos % (Auto) Baso % (Auto) Lymph # (Auto) [place] # (Auto) Eos # (Auto) Baso # (Auto) Abs Immat Gran (auto) Absolute Neuts (auto) Absolute Nucleated RBC Nucleated RBC % Sodium Potassium Chloride Carbon Dioxide Anion Gap BUN Creatinine Estim Creat Clear Calc Estimated GFR Glucose POC Capillary Glucose 72 72 124 H Calcium Total Bilirubin AST ALT Alkaline Phosphatase Total Protein Albumin Syphilis IgG/IgM Ab Blood Type Antibody Screen 04/15/25 04/15/25 04/15/25 20:35 17:13 17:12 WBC 9.7 RBC 5.00 Hgb 12.8 Hct 40.5 MCV 81.0 MCH 25.6 L MCHC 31.6 L RDW 14.9 H Plt Count 243 MPV 10.9 H Immature Gran % (Auto) 0.4 Neut % (Auto) 74.5 H Lymph % (Auto) 17.1 L [place] % (Auto) 6.8 Eos % (Auto) 1.2 Baso % (Auto) 0.0 L Lymph # (Auto) 1.65 [place] # (Auto) 0.7 H Eos # (Auto) 0.1 Baso # (Auto) 0.0 Abs Immat Gran (auto) 0.04 H Absolute Neuts (auto) 7.2 H Absolute Nucleated RBC 0.000 Nucleated RBC % 0.0 Sodium 134 L Potassium 4.1 Chloride 107 Carbon Dioxide 19 L Anion Gap 8 BUN 17 Creatinine 0.81 Estim Creat Clear Calc Not Reportable Estimated GFR > 60 Glucose 98 POC Capillary Glucose 76 Calcium 9.3 Total Bilirubin 0.3 AST 31 ALT 19 Alkaline Phosphatase 196 H Total Protein 7.2 Albumin 3.8 Syphilis IgG/IgM Ab Non-reactive Blood Type O Positive Antibody Screen Negative Discharge Plan Discharge Attending physician on discharge: Carley Brody Consulting providers: Carley Brody Discharging Clinician: Carley Brody Anticipated Discharge Date/Time: 04/18/25 16:45 Patient Disposition: Home Activity: may shower and pelvic rest Diet: as tolerated and regular Patient Instructions: Antibiotic Form Patient Language: Stateless Stand Alone Forms: General Discharge Information Follow-up/Referrals: Carley Brody MD [Physician, FIELD CROP TECHNICAL OFFICER] - 6 Weeks Discharge Medications: Continued PNV no.95-ferrous fumarate-FA [] 28 mg iron- 800 mcg tablet 1 tablet PO DAILY Date of admission: 04/15/25 16:41 Primary Care Provider: KassandraIrina Admitting Provider: Carley Brody Attending physician on admission: Carley Brody Condition: Stable
[2025-04-16] MEDS: OXYTOCIN 30 UNITS/NS 500 ML 30 UNITS/500 ML BAG 125 UNITS IV CONT (16:56)
[2025-04-16] MEDS: WITCH HAZEL 40 PADS 1 PAD TOPICAL (19:52)
[2025-04-16] MEDS: BENZOCAINE 20% AER SPR (*SP) 56 GM CAN 1 SPRAY TOPICAL (19:52)
--- NOTE | 2025-04-16 20:10 | OBPPTRN ---
Patient transferred to post room #283 via wheelchair. Support person present. Oriented to unit, room, information board, rooming in, admission packet and security measures. Patient verbalizes understanding.
[2025-04-17 00:15] VITALS: BP 112/65; PULSE 81; RESP 18; TEMP 36.4; O2SAT 100
[2025-04-17 04:00] VITALS: BP 114/69; PULSE 67; RESP 16; TEMP 36.4; O2SAT 100
[2025-04-17 04:35] LABS: Hematocrit 32.0 % (37.0-47.0); Hemoglobin 10.0 g/dL (12.0-15.0)
--- NOTE | 2025-04-17 07:45 | P.PNOB_ITS ---
OB - PN: Subj Subjective Date/time seen: 04/17/25 07:45 Patient comments: no complaints baby status: doing well OB - PN: Obj Data Labs 04/17/25 03:45 04/15/25 17:13 Labs: Laboratory Results - last 24 hr 04/16/25 04/16/25 04/16/25 10:27 13:41 14:55 Hgb Hct POC Capillary Glucose 80 93 88 04/17/25 03:45 Hgb 10.0 L Hct 32.0 L POC Capillary Glucose OB - PN A/P Plan day: 1 Plan: routine care Time Spent With Patient Time: Total time spent is greater than 50% in coordination of care (as documented) at patient's floor/unit and/or counseling patient: Exam 2 : Bimanual exam- vagina & uterus: other (Uterus firm, nt @U)
--- NOTE | 2025-04-17 07:45 | PC.NURSE ---
Assistance requested for attempt. Baby has had one good feeding with the assistance of the night RN latching him to the breast. Mom has tried the shield but is not using it now. Mom has baby in football hold and he gives decent effort to latch, but never sucks to pull the nipple back into his mouth. He roots and gapes but after several minutes of trying, he hasn't latched and becomes fussy. Mom is shown how to compress the breast to make a 'bite' for baby. Her nipples are meaty and mostly flat. She tends to only hold the top part of her breast and the nipple is unable to go into his mouth, but instead lays on his chin. Mom feels that he is sometimes 'latched but not sucking'. However, there was no latch to the breast when we attempted this time. Offered to try the nipple shield again but mom wasn't interested in trying it at this time. Advised mother to pump for 15 minutes after feeding attempts when baby is unable to breastfeed well. She has her Spectra pump here that she will use. Primary RN updated and is going to initiate the hypoglycemia protocol due to his low blood glucose.
--- NOTE | 2025-04-17 07:46 | WPDANLDPN2 ---
Anes-Prog Note L&D Date/Time: 04/17/25 07:46 Comfortable throughout: labor and delivery Neuraxial method: epidural Epidural/Spinal procedure site: clean & non-tender Neuro status: Neuro function grossly intact. Cardiovascular status: normal Respiratory status: normal Airway patency: baseline Mental status: baseline Post-Op hydration status: normal Vital Signs: Last Vital Signs Temp 36.4 C 04/17/25 04:00 Pulse 67 04/17/25 04:00 Resp 16 04/17/25 04:00 BP 114/69 04/17/25 04:00 Pulse Ox 100 04/17/25 04:00 O2 Del Method Room Air 04/17/25 04:00 Pain score (VAS): 3 I/O: Intake & Output 04/16/25 04/16/25 04/17/25 15:59 23:59 07:59 Intake Total 8.6 Output Total 150 Balance 8.6 -150 Post-procedural complaints: other (headache.) Patient feedback: Patient satisfied with anesthetic care. patient reports a headache after delivery 6/10 but took ibuprofen and had total relief 0/10 pain. reports mild pain today but is sitting up, breast feeding with lights on and reports headache is not better or worse positionally. At this time I told the patient we do not believe it is a PDPH however if symptoms get worse to let us know. Will continue to follow
[2025-04-17 08:30] VITALS: BP 123/76; PULSE 72; RESP 18; TEMP 37.1; O2SAT 97
--- NOTE | 2025-04-17 11:30 | PC.NURSE ---
Mother called out for feeding assistance. Baby is alert and eager and we used the football hold on the left breast. Baby roots and tries to grasp the nipple but the breast slips from his mouth very easily. After trying for about 5 minutes, baby obtained a latch and suckled. Mom is working much better with baby and her breast. She was able to latch independently. Baby maintained the latch well. He needed to be stimulated occasionally to keep him sucking. A few swallows were heard and mom is taught to listen for swallows and note when baby has louder, gulping swallows that indicate larger milk transfer. After baby nursed for 10 minutes, mom burped him and moved him to the other breast. Again, mom used the football hold and he did latch off and on but did not maintain the suction as well as he did on the first side. He fed for a total of 15 minutes and parents are encouraged to feed him again in 2-3 hours. Primary RN updated.
--- NOTE | 2025-04-17 11:57 | PC.NURSE ---
Patient unable to swallow hospital provided - patient supplied own
[2025-04-17 12:18] VITALS: BP 122/70; PULSE 77; RESP 16; TEMP 36.6; O2SAT 98
--- NOTE | 2025-04-17 15:15 | PC.NURSE ---
1515: Patient is requesting feeding assistance. Baby had his last blood glucose check and it was WNL. We placed him in football at the right breast. Within the first few minutes of attempting to latch, baby became very fussy and inconsolable. Mom is encouraged to try skin to skin to calm baby and we will try to latch again when he is in an appropriate state. Primary RN notified of attempt. 1555: Patient is ready to attempt feeding again. Baby is a little sleepy but has a wet diaper and dad changed him independently. Mom has a headache and has not slept or rested much. We tried baby on the right breast first in football, then laid back, and then switched to the left breast in a side lying hold. Baby makes eager attempts to latch but he is unable to grasp the breast. When a bite of breast is placed in baby's open mouth, baby does not start sucking and the breast slips out the bottom of his mouth. He has a slightly recessed chin. He appears to have good tongue movement. Baby again became very agitated and we were unable to calm him to try latching any longer. Dad took baby and placed him skin to skin. Mom is feeling discouraged and wonders what our next step should be. We reviewed that she can wait another half hour and try again, she can pump, or she can supplement with formula. She prefers to try pumping and she has her Spectra pump. We measured her for flange sizing and reviewed her pump modes. Recommended pumping for 15 minutes after each attempt. Patient knows that very small amounts of colostrum are expected and that she can use hands on pumping to increase the volume of milk expressed. Patient is very prepared with a lot of supplies and tools. Mom is instructed to call out after pumping so that we can give any expressed milk to baby. Primary RN updated. 1645: Patient pumped a few mls of colostrum and the primary RN is medicating her and allowing her to rest at this time. Baby is in the nursery for testing and mom consented to supplementing with formula at this feeding. Patient will need further feeding guidance tonight and tomorrow before discharge. A feeding plan will be included in baby's discharge packet.
[2025-04-17] MEDS: ACETAMINOPHEN 325 MG TABLET 650 MG PO ×2 (16:52→22:43)
[2025-04-17 21:13] VITALS: BP 127/74; PULSE 84; RESP 14; TEMP 37.2; O2SAT 100
[2025-04-17] MEDS: WITCH HAZEL 40 PADS 1 PAD TOPICAL (22:44)
[2025-04-17] MEDS: IBUPROFEN 600 MG TABLET PO (22:44)
[2025-04-18] MEDS: ACETAMINOPHEN 325 MG TABLET 650 MG PO ×2 (07:12→13:26)
--- NOTE | 2025-04-18 07:41 | P.PNOB_ITS ---
OB - PN: Subj Subjective Date/time seen: 04/18/25 07:41 Patient comments: no complaints and pain well controlled baby status: doing well OB - PN: Obj Data Labs 04/17/25 03:45 04/15/25 17:13 OB - PN A/P Plan day: 2 Plan: routine care, discharge home, follow up 6 weeks and other (unsure bc) Time Spent With Patient Time: Total time spent is greater than 50% in coordination of care (as documented) at patient's floor/unit and/or counseling patient: Exam 2 : Bimanual exam- vagina & uterus: other (Uterus firm, nt @U)
[2025-04-18 07:50] VITALS: BP 112/73; PULSE 72; RESP 16; TEMP 36.9; O2SAT 100
--- NOTE | 2025-04-18 10:17 | PC.NURSE ---
0635: Introductions were made, communication board updated. Discussed with patient her experience so far. Patient states that she has difficulty waking infant for feedings. While this RN was at bedside it was time for a feeding. Patient was able to position her in football position independently. was sleepy when placed to the breast. Discussed with patient the importance of waking infant before putting to breast. This RN assisted with waking infant by touching to stimulate and position changes. was then given back to mother once awake. Infant would not latch to the right breast but once switched to the left breast infant was able to latch in football position without pain to patient. Encouraged parents to stimulate infant while feeding to promote wakefulness to nurse. Parents understand. Primary RN updated. 0715: Called to patient bedside to assist patient with pumping. Patient states that infant nursed for ~10 minutes but was not actively sucking for the entirety of the 10 minute feed. Patient would like to pump and give what she is able to pump. Discussed how to use her Spectra S1 pump and assisted with placement. Patient states there are no further questions at this time.
--- NOTE | 2025-04-18 12:06 | PC.NURSE ---
Called to patient room to assist with latching . Upon entering room, was sound asleep against patient. Attempts were made to wake for feeding but were unsuccessful. Once was awake and placed on mothers chest, infant quickly fell back asleep. Instructed parents to allow infant to go skin to skin and attempt to wake again in ~30 minutes.
--- NOTE | 2025-04-18 15:21 | PC.NURSE ---
Patient instructed on viewing the discharge video Mother & Baby Care, The First Two Weeks. Patient was given the opportunity and encouraged to ask questions. Patient verbalized understanding of information shared and has been given the mother/baby guide for home reference.
[2025-04-19 15:17] VITALS: BP 108/54; PULSE 56; RESP 18; TEMP 36.8; O2SAT 99
== END 2025-04-18 16:23 | disposition home or self-care (01) | DRG 807 ==
LOC: ANHLDR 04-16 16:45 → ANHOB2 04-16 20:55
PROVIDERS: Admitting Provider Obstetrics & Gynecology; PCP Family Medicine; Visit Provider Obstetrics & Gynecology Gynecology
DX: O24.429 Gestational diabetes mellitus in childbirth, unspecified control (principal); Z37.0 Single live birth; Z3A.39 39 weeks gestation of pregnancy; O70.1 Second degree perineal laceration during delivery
CPT/HCPCS: 36415; 80053; 82948; 85014; 85018; 85025; 86593; 86850; 86900; 86901; A9270; J2590; J2795; J7120

== ENCOUNTER 2025-04-19 01:45 | Outpatient (CLI) | payer BC, SELFPAY ==
[2025-04-19] VITALS (32 sets, daily range): BP systolic 113–139; BP diastolic 68–91; PULSE 47–153; O2SAT 93–100
--- OUTSIDE RECORDS SUMMARY | 2025-04-19 15:25 | XMS_ITS | Clinical Summary ---
Author Organization [facility] Address [address] [place] [address] Care Team Providers Care Tufter Operator Name Role Phone eGoffIrina Charla GUADALUPE Primary Care Provider Allergies No known active allergies Medications vitamin D2, ergocalciferol, (DRISDOL) 1.25 mg capsule Take 1 capsule (50,000 Units total) by mouth once a week. 07/04/2022 Active MV & Min w/FA-DHA ( ADULT GUMMY/DHA/FA OR) 4 gummies daily Active Active Problems Problem Noted Date Diagnosed Date and not yet delivered in first trimeste r ([facility]) 08/18/2024 Overview (10/10/2024): Found out I was [...] CDT Gender Identity Female 10/01/2021 8:29 AM PERSONAL DEVELOPMENT COACH Sexual Orientation Straight 10/01/2021 8: 29 AM PERSONAL DEVELOPMENT COACH Last Filed Vital Signs Vital Sign Reading [...] 01/14/2021 Hepatitis C Completed 10/03/2021 PHQ-2 (Physician [place]) Completed 10/10/2024 Meningococcal B Vaccine Aged Out No l onger eligible based on patient's age to complete this topic RSV Immunization or 60+ Years (No Doses Required) Completed RSV Immunizations Under 20 Months Aged Out No longer eligible based on patient's age to complete this topic Procedures Procedure Name Priority Date/Time Associated Diagnosis Comments HEPATITIS C ANTIBODY 10/03/2021 9:56 AM PERSONAL DEVELOPMENT COACH OUTSIDE CYTOPATH CERV/VAG INTERPRET (PAP) (SCAN ORDER) 09/19/2021 from Last 3 Months or Most Recently Relevant to Health Maintenance Results * HEPATITIS C ANTIBODY (10/03/2021 9:56 AM PERSONAL DEVELOPMENT COACH) HEPATITIS C AB <0.1 0.0 - 0.9 s/co ratio [facility] 1 Comment: Negative: < 0.8 Indeterminate: 0.8 - 0.9 Positive: > 0.9 The CDC recommends that a positive HCV antibody result be followed up with a HCV Nucleic Acid Amplification test (328153). 10/03/2021 9:56 AM PERSONAL DEVELOPMENT COACH 10/03/2021 Narrative [facility] - 10/04/2021 8:11 AM PERSONAL DEVELOPMENT COACH Performed at: 01 - [facility] [address] [id number] Accounting Technician: Jaguar Tubbs PhD, Phone: [phone] us Irina Tellez DO LABORATORY Final Result [facility] [address] [place] [address] [facility] 1 * OUTSIDE CYTOPATH CERV/VAG INTERPRET (PAP) (09/19/2021) 09/19/2021 Narrative 09/19/2021 Ordered by an unspecified provider. us Documents Scanned SCANNING Final Result from Last 3 Months or Most Recently Relevant to Health Maintenance [facility] Care Teams Tufter Operator Relationship Specialty Start Date End Date Irina Tellez DO [address] [place] [address] PCP - General FAMILY PRACTICE 09/15/19
--- OUTSIDE RECORDS SUMMARY | 2025-04-19 15:25 | XMS_ITS | Encounter Summary ---
Author Organization [facility] Address [facility] [place] [address] Care Team Providers Care Antique Automobiles Repairer Name Role Phone Irina Tellez DO Primary Care Provider [phone] Encounter Details Date Type Department Care Team (Late st Contact Info) Description 04/14/2021 Orphazymet Message Enc [facility] Family Medicine - [place] [address] [place] [phone] Irina Tellez DO [address] [place] [address] RE: Question Social History Tobacco Use Types [...] CDT Gender Identity Female 10/01/2021 8:29 AM PROMOTIONS DIRECTOR Sexual Orientation Straight 10/01/2021 8: 29 AM PROMOTIONS DIRECTOR COVID-19 Exposure Response Date Recorded In [...] documented as of this encounter Care Teams [employer] Repairer Relationship Specialty Start Date End Date Irina Tellez DO [address] [place] [address] PCP - General FAMILY PRACTICE 09/15/19 documented as of this encounter
--- OUTSIDE RECORDS SUMMARY | 2025-04-19 15:25 | XMS_ITS | Encounter Summary ---
Author Organization [facility] Address [facility] [place] [address] Care Team Providers Care Arts And Humanities Council Director Name Role Phone Irina Tellez DO Primary Care Provider Encounter Details Date Type Department Care Team (Late st Contact Info) Description 10/13/2021 MyChart Message Enc [facility] Family Medicine - [place] [address] [place] [address] Irina Tellez DO [address] [place] [address] Vitamin d test Social History Tobacco Use [...] CDT Gender Identity Female 10/01/2021 8:29 AM ELASTIC ATTACHER COVERSTITCH Sexual Orientation Straight 10/01/2021 8: 29 AM ELASTIC ATTACHER COVERSTITCH COVID-19 Exposure Response Date Recorded In the last 10 days, have yo u been in contact with someone who was confirmed or suspected to have Coronavirus/COVID-19? No / Unsure 10/03/2021 7:46 AM ELASTIC ATTACHER COVERSTITCH documented as of this encounter Plan of Treatment Not on file documented as of this encounter Visit Diagnoses Not on filedocumented in this encounter Additional Health Concerns Assessment Noted Time PHQ-9 Depression Total Score: 8 10/04/19 22 7:51 AM ELASTIC ATTACHER COVERSTITCH documented as of this encounter Care Teams Arts And Humanities Council Director Relationship Specialty Start Date End Date Irina Tellez DO [address] [place] [address] PCP - General FAMILY PRACTICE 09/15/19 documented as of this encounter
--- OUTSIDE RECORDS SUMMARY | 2025-04-19 15:25 | XMS_ITS | Encounter Summary ---
Author Organization [facility] Address [facility] [place] [address] Care Team Providers Care Rn Placement Name Role Phone Irina Tellez DO Primary Care Provider [phone] Encounter Details Date Type Department Care Team (Late st Contact Info) Description 04/16/2021 Uromedicat Message Enc [facility] Medical [facility] Family Medicine - [place] [address] [place] [phone] Irina Tellez DO [address] [place] [address] RE: Medication Questions Social History Tobacco Use [...] CDT Gender Identity Female 10/01/2021 8:29 AM ONCOLOGY CONSULTANT Sexual Orientation Straight 10/01/2021 8: 29 AM ONCOLOGY CONSULTANT COVID-19 Exposure Response Date Recorded In the [...] documented as of this encounter Care Teams Rn Placement Relationship Specialty Start Date End Date Irina Tellez DO [address] [place] [address] PCP - General FAMILY PRACTICE 09/15/19 documented as of this encounter
--- OUTSIDE RECORDS SUMMARY | 2025-04-19 15:25 | XMS_ITS | Encounter Summary ---
Author Organization [facility] Address [facility] [place] [address] Care Team Providers Care Sap Bw Architect Name Role Phone Irina Tellez DO Primary Care Provider [phone] Encounter Details Date Type Department Care Team (Late st Contact Info) Description 06/11/2022 MyCDel Tacot Message Enc [facility] Medical [facility] Family Medicine - [place] [address] [place] [phone] Irina Tellez DO [address] [place] [address] Abnormal lab results Social History Tobacco Use [...] CDT Gender Identity Female 10/01/2021 8:29 AM STRATEGIC PROCUREMENT MANAGER Sexual Orientation Straight 10/01/2021 8: 29 AM STRATEGIC PROCUREMENT MANAGER documented as of this encounter Progress Notes * Irina Tellez DO - 06/12/2022 1:46 PM CST She can try some Azo over the weekend and avoid caffeine and alcohol TEGIC PROCUREMENT MANAGER * Irina Tellez DO - 06/11/2022 11:36 AM CST If she is not having symptoms that can happen due to vaginal shedding with the urine sample and does not mean she has a UTI We can place an order for a urine culture and then treat if positive TEGIC PROCUREMENT MANAGER documented in this encounter Plan of Treatment Not on file documented as of this encounter Visit Diagnoses Not on filedocumented in this encounter Additional Health Concerns Assessment Noted Time PHQ-9 Depression Total Score: 8 10/04/19 22 7:51 AM STRATEGIC PROCUREMENT MANAGER documented as of this encounter Care Teams Sap Bw Architect Relationship Specialty Start Date End Date Irina Tellez DO [address] [place] [address] PCP - General FAMILY PRACTICE 09/15/19 documented as of this encounter
--- OUTSIDE RECORDS SUMMARY | 2025-04-19 15:25 | XMS_ITS | Encounter Summary ---
Author Organization [facility] Address [facility] [place] [address] Care Team Providers Care Supervisor Silvering Department Name Role Phone Irina Tellez DO Primary Care Provider [phone] Encounter Details Date Type Department Care Team (Late st Contact Info) Description 06/09/2021 Zuznowt Message Enc [facility] Medical Group Family Medicine - [place] [address], [address] [place] [phone] Irina Tellez DO [address] '[place] [address] Question Social History Tobacco Use Types Packs/Day [...] CDT Gender Identity Female 10/01/2021 8:29 AM FURNITURE FABRICATOR Sexual Orientation Straight 10/01/2021 8: 29 AM FURNITURE FABRICATOR documented as of this encounter Plan of Treatment Not on file documented as of this encounter Visit Diagnoses Not on filedocumented in this encounter Additional Health Concerns Assessment Noted Time PHQ-9 Depression Total Score: 0 06/09/20 21 2:27 PM FURNITURE FABRICATOR documented as of this encounter Care Teams Supervisor Silvering Department Relationship Specialty Start Date End Date Irina Tellez DO [address] [place] [address] PCP - General FAMILY PRACTICE 09/15/19 documented as of this encounter
--- OUTSIDE RECORDS SUMMARY | 2025-04-19 15:25 | XMS_ITS | Encounter Summary ---
Author Organization [facility] Address [facility] [place] [address] Care Team Providers Care Podiatry Doctor Name Role Phone Irina Tellez DO Primary Care Provider [phone] Encounter Details Date Type Department Care Team (Late st Contact Info) Description 10/28/2022 MyChart Message Enc [facility] Medical Group Family Medicine - [place] [address], [address] [place] [phone] Irina Tellez DO [address] [place] [address] New meds Social History Tobacco Use Types [...] CDT Gender Identity Female 10/01/2021 8:29 AM SALESPERSON CHILDREN'[employer] SHOES Sexual Orientation Straight 10/01/2021 8: 29 AM SALESPERSON [employer]DREN[employer] COVID-19 Exposure Response Date Recorded In the last 10 days, have yo u been in contact with someone who was confirmed or suspected to have Coronavirus/COVID-19? No / Unsure 10/06/2022 2:57 PM SALESPERSON CHILDREN'[employer] SHOES documented as of this encounter Plan of Treatment Not on file documented as of this encounter Visit Diagnoses Not on filedocumented in this encounter Additional Health Concerns Assessment Noted Time PHQ-9 Depression Total Score: 12 023 4:05 PM SALESPERSON CHILDREN'[employer] SHOES documented as of this encounter Care Teams Podiatry Doctor Relationship Specialty Start Date End Date Irina Tellez DO [address] [place] [address] PCP - General FAMILY PRACTICE 09/15/19 documented as of this encounter
--- OUTSIDE RECORDS SUMMARY | 2025-04-19 15:25 | XMS_ITS | Encounter Summary ---
Author Organization [facility] Care Team Providers Care Technology Manager Name Role Phone No, Physician Primary Care Provider [phone] Irina Tellez MD Primary Care Provider [phone] Encounter Details Date Type Department Care Team (Latest Contact Info) Description 12/23/2015 Orders Only [facility] CLINCONV Provider, MD Demetrio [address] [place] [address] Social History Tobacco Use Types Packs/Day Years Used Date Smoking Tobacco: Never Comments Unknown Sex and Gender Information Value Date Recorded Sex Assigned at Not on file Legal Sex Female 10:01 PM FIBER OPTICS TECHNICIAN Gender Identity Female 08/24/2024 12:56 PM FIBER OPTICS TECHNICIAN Sexual Orientation Not on file documented as [...] on filedocumented in this encounter Care Teams Technology Manager Relationship Specialty Start Date End Date No, Physician PCP - General 09/06/19 09/26/19 Irina Tellez MD PCP - General Family Medicine 09/27/19 documented as of this encounter
--- OUTSIDE RECORDS SUMMARY | 2025-04-19 15:25 | XMS_ITS | Clinical Summary ---
Author Organization 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 T: Report ID: [id number] Reading Location: [id number] Procedure Note Abdelrahman Hanson MD - 04/01/2025 [...] by Abdelrahman Hanson M.D. T: Report ID: [id number] Reading Location: [id number] us Carley Brody MD IMG OB US PROCEDURES Fin al Result from Last 3 Months Insurance ANTHEM ACCESS CAROLINE ACCESS OOS Care Teams Political Theory Professor Relationship Specialty Start Date End Date Irina Tellez MD PCP - General Family Medicine 09/27/19
--- OUTSIDE RECORDS SUMMARY | 2025-04-19 15:25 | XMS_ITS | Encounter Summary ---
Author Organization [facility] Address [facility] [place] [address] Care Team Providers Care Service Line Bus Cleaner Name Role Phone Irina Tellez DO Primary Care Provider Encounter Details Date Type Department Care Team (Late st Contact Info) Description 06/22/2024 Joyhoundt Message Enc [facility] Medical Group Family Medicine - [place] [address], [address] [place] [address] Irina Tellez DO [address] [place] [address] Work physical results Social History Tobacco Use [...] CDT Gender Identity Female 10/01/2021 8:29 AM WAITSTAFF CAPTAIN Sexual Orientation Straight 10/01/2021 8: 29 AM WAITSTAFF CAPTAIN documented as of this encounter Plan of Treatment Not on file documented as of this encounter Visit Diagnoses Not on filedocumented in this encounter Additional Health Concerns Assessment Noted Time PHQ-9 Depression Total Score: 11 023 4:09 PM CDT documented as of this encounter Care Teams Service Line Bus Cleaner Relationship Specialty Start Date End Date Irina Tellez DO [address] [place] [address] PCP - General FAMILY PRACTICE 09/15/19 documented as of this encounter
--- OUTSIDE RECORDS SUMMARY | 2025-04-19 15:25 | XMS_ITS | Encounter Summary ---
Author Organization [facility] Address [facility] [place] [address] Care Team Providers Care Doctor'S Assistant Name Role Phone Irina Tellez DO Primary Care Provider [phone] Encounter Details Date Type Department Care Team (Late st Contact Info) Description 06/16/2021 [place] Purificationt Message Enc [facility] Medical Group Family Medicine - [place] [address] [place] [address] Irina Tellez DO [address] [place] [address] Work physical blood and urine testing Social [...] CDT Gender Identity Female 10/01/2021 8:29 AM CANCER SPEC Sexual Orientation Straight 10/01/2021 8: 29 AM CANCER SPEC COVID-19 Exposure Response Date Recorded In the last month, have you been in contact with someone who was confirmed or suspected to have Coronavirus / COVID-19? No / Unsure 06/16/2021 7:10 PM CANCER SPEC documented as of this encounter Progress Notes * Irina Tellez DO - 06/16/2021 3:03 PM CST If she is not having symptoms I would have her stop by for a Urine Culture before we treat ER SPEC documented in this encounter Plan of Treatment Not on file documented as of this encounter Visit Diagnoses Not on filedocumented in this encounter Additional Health Concerns Assessment Noted Time PHQ-9 Depression Total Score: 0 06/09/20 21 2:27 PM CANCER SPEC documented as of this encounter Care Teams Doctor'S Assistant Relationship Specialty Start Date End Date Irina Tellez DO [address] [place] [address] PCP - General FAMILY PRACTICE 09/15/19 documented as of this encounter
--- OUTSIDE RECORDS SUMMARY | 2025-04-19 15:25 | XMS_ITS | Encounter Summary ---
Author Organization [facility] Address [facility] [place] [address] Care Team Providers Care Adventure Therapist Name Role Phone Irina Tellez DO Primary Care Provider [phone] Encounter Details Date Type Department Care Team (Late st Contact Info) Description 11/04/2022 MyChart Message Enc [facility] Medical Group Family Medicine - [place] [address] [place] [address] Irina Tellez DO [address] '[place] [address] Chest pains Social History Tobacco Use Types [...] CDT Gender Identity Female 10/01/2021 8:29 AM CIGAR ROLLER Sexual Orientation Straight 10/01/2021 8: 29 AM CIGAR ROLLER COVID-19 Exposure Response Date Recorded In the [...] Depression Total Score: 12 023 4:05 PM CIGAR ROLLER documented as of this encounter Care Teams Adventure Therapist Relationship Specialty Start Date End Date Irina Tellez DO [address] [place] [address] PCP - General FAMILY PRACTICE 09/15/19 documented as of this encounter
--- OUTSIDE RECORDS SUMMARY | 2025-04-19 15:25 | XMS_ITS | Encounter Summary ---
Author Organization [facility] Address Formerly [facility] [place] [address] Care Team Providers Care Fitter Type Bar And Segment Name Role Phone Irina Tellez DO Primary Care Provider Encounter Details Date Type Department Care Team (Late st Contact Info) Description 11/03/2021 MyCVignot Message Enc [facility] Medical [facility] Family Medicine - [place] [address], [address] [place] [phone] Irina Tellez DO [address] [place] [address] Cold and medicine I am prescribed Social [...] CDT Gender Identity Female 10/01/2021 8:29 AM WINERY WORKER Sexual Orientation Straight 10/01/2021 8: 29 AM WINERY WORKER documented as of this encounter Plan of Treatment Not on file documented as of this encounter Visit Diagnoses Not on filedocumented in this encounter Additional Health Concerns Assessment Noted Time PHQ-9 Depression Total Score: 8 10/04/19 22 7:51 AM WINERY WORKER documented as of this encounter Care Teams Fitter Type Bar And Segment Relationship Specialty Start Date End Date Irina Tellez DO [address] [place] [address] PCP - General FAMILY PRACTICE 09/15/19 documented as of this encounter
--- OUTSIDE RECORDS SUMMARY | 2025-04-19 15:25 | XMS_ITS | Encounter Summary ---
Author Organization [facility] Address [facility] [place] [address] Care Team Providers Care Production Associate Name Role Phone Irina Tellez DO Primary Care Provider [phone] Encounter Details Date Type Department Care Team (Late st Contact Info) Description 09/04/2020 MyChart Message Enc [facility] Medical Group Family Medicine - [place] [address], [address] [place] [phone] Irina Tellez DO [address] [place] [address] RE: Question Social History Tobacco Use Types Packs/Day Years Used Date Smoking Tobacco: Never Smokeless Tobacco: Never Comments No Sex and Gender Information Value Date Recorded Sex Assigned at Female 10/10/2024 3:13 PM CDT Legal Sex Female 4:13 PM CDT Gender Identity Female 10/01/2021 8:29 AM REFUELING RAMP ATTENDANT Sexual Orientation Straight 10/01/2021 8: 29 AM REFUELING RAMP ATTENDANT documented as of this encounter Plan of Treatment Not on file documented as of this encounter Visit Diagnoses Not on filedocumented in this encounter Care Teams Production Associate Relationship Specialty Start Date End Date Irina Tellez DO [address] [place], [place] [id number] PCP - General FAMILY PRACTICE 09/15/19 documented as of this encounter
--- OUTSIDE RECORDS SUMMARY | 2025-04-19 15:25 | XMS_ITS | Encounter Summary ---
Author Organization [facility] Address [facility] [place] [address] Care Team Providers Care Field Operations Supervisor Name Role Phone Irina Tellez DO Primary Care Provider [phone] Encounter Details Date Type Department Care Team (Late st Contact Info) Description 11/05/2020 [place] [employer] Message Enc 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 No / Unsure 10/14/2020 12:08 AM CDT documented as of this encounter Plan of Treatment Not on file documented as of this encounter Visit Diagnoses Not on filedocumented in this encounter Care Teams Field Operations Supervisor Relationship Specialty Start Date End Date Irina Tellez DO [address] [place] [address] PCP - General FAMILY PRACTICE 09/15/19 documented as of this encounter
--- OUTSIDE RECORDS SUMMARY | 2025-04-19 15:25 | XMS_ITS | Encounter Summary ---
Author Organization [facility] Address [facility] [place] [address] Care Team Providers Care Table Maker Name Role Phone Irina Tellez DO Primary Care Provider [phone] Encounter Details Date Type Department Care Team (Late st Contact Info) Description 02/12/2021 [employer] Message Enc [facility] Medical Group Family Medicine - [place] [address], [address] [place] [phone] Irina Tellez DO [address] [place] [address] RE: Question Social History Tobacco Use Types [...] CDT Gender Identity Female 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
--- OUTSIDE RECORDS SUMMARY | 2025-04-19 15:25 | XMS_ITS | Encounter Summary ---
Author Organization [facility] Address Counts include [facility] beds at the [facility] [place] [address] Care Team Providers Care Books Binder Name Role Phone Irina Tellez DO Primary Care Provider Encounter Details Date Type Department Care Team (Late st Contact Info) Description 06/16/2023 DyMyndt Message Enc [facility] Medical Group Family Medicine - [place] [address], [address] [place] [phone] Irina Tellez DO [address] '[place] [address] Weird bump on arm Social History Tobacco [...] CDT Gender Identity Female 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
[2025-04-19 16:03] LABS: Hematocrit 34.4 % (37.0-47.0); Hemoglobin 10.8 g/dL (12.0-15.0); Immature Granulocyte Percent A 0.7 % (0-0.5); Lymphocytes Absolute Auto 1.74 K/mm3 (0.9-3.2); Mean Corpuscular HGB Conc 31.4 g/dl (32-36); Mean Corpuscular Hemoglobin 26.0 pg (26-34); Mean Corpuscular Volume 82.7 fl (80-100); Nucleated Red Blood Cells Absolute Auto 0.000 K/mm3 (0.0-0.012); Nucleated Red Blood Cells Perc 0.0 % (0.0-0.2); Platelet Count Result 222 k/mm3 (150-375); Red Blood Count 4.16 M/mm3 (4.2-5.4); White Blood Count 10.7 K/mm3 (4.5-10.0)
--- NOTE | 2025-04-19 17:33 | WPDANESEBPP ---
Anes - Epidural Blood Patch PN Date/Time: 04/19/25 17:33 Consent: I have discussed with the patient/family/POA, the rationale of a lumbar epidural autologous blood patch for the treatment of post-dural puncture headache (spinal headache), including associated potential risks, benefits, complications and side effects. I have also discussed more conservative treatment options such as intravenous hydration, caffeine and non-prescription analgesics. The patient/family/POA, understand(s) and wish(es) to proceed with epidural autologous blood patch as treatment for the patient's post-dural puncture headache. Time-Out: A pre-procedural Time-Out was completed immediately before starting the procedure and confirmed: Patient Identification, Site, Procedure, Patient Position and the Availability of Requisite Equipment. Clinical Indications: PDPH Epidural Insertion Note Patient position: sitting Skin prep: chlorhexidine and sterile drape Needle: 18 gauge Tuohy-Schliff Technique: loss of resistance Skin anesthesia: lidocaine 1% Observations: tolerated well Complications: none
== END 2025-04-19 19:06 | disposition home or self-care (01) ==
LOC: ANHOBOP 15:23 → ANHOBPP 19:09
PROVIDERS: Anesthesiology; PCP Family Medicine; Visit Provider Obstetrics & Gynecology Gynecology
DX: Z39.2 Encounter for routine postpartum follow-up (principal)
CPT/HCPCS: 36415; 62273; 85025; 99199